=== PATIENT | male | born 1975 | race Caucasian/White ===

== ENCOUNTER 2018-11-20 12:05 | Emergency (ER) | payer SELFPAY ==
[~2018-11-20] VITALS: Ht 185.4 cm; Wt 85.2 kg
[~2018-11-20 12:05] MED LIST: ASPI-515 PO; LISI-170 PO; NITR0.4T28 SL
[2018-11-20 12:13] VITALS: BP 122/60
--- NOTE | 2018-11-20 12:46 | NUR ---
PT HERE FOR SUICIDAL THOUGHTS. PAST ATTEMPTS OF OVERDOSE. TODAY STATES THAT HE WANTS TO CUT HIS WRISTS AND OVERDOSE. HE WALKED INTO HOSPITAL. REPORTS LONG HX OF DEPRESSION. ROOM SECURED. SITTER OUTSIDE ROOM. BELONGINGS IN LOCKER BY [facility]. PT REQUESTING MEAL TRAY AND MILK.
[2018-11-20 12:50] LABS: BASOPHILS # (AUTO) 0.02 x10^3/uL (0-0.1); BASOPHILS % (AUTO) 0 % (0-1); EOSINOPHILS # (AUTO) 0.11 x10^3/uL (0-0.4); EOSINOPHILS % (AUTO) 1 % (1-7); LYMPHOCYTES # (AUTO) 1.07 x10^3/uL (1-3.4); LYMPHOCYTES % (AUTO) 14 % (22-44); MD NO; MEAN CORPUSCULAR HEMOGLOBIN 23.9 pg (27.5-34.5); MEAN CORPUSCULAR HGB CONC 32.2 g/dL (33.2-36.2); MEAN CORPUSCULAR VOLUME 74.2 fL (81-97); MEAN PLATELET VOLUME 7.7 fL (7.4-10.4); MONOCYTES # (AUTO) 0.44 x10^3/uL (0.2-0.8); MONOCYTES % (AUTO) 6 % (2-9); NEUTROPHILS # (AUTO) 6.23 x10^3/uL (1.8-6.8); NEUTROPHILS % (AUTO) 79 % (42-75); PLATELET COUNT 345 x10^3/uL (130-400); RED BLOOD COUNT 4.78 x10^6/uL (4.38-5.82); RED CELL DISTRIBUTION WIDTH 19.6 % (9.4-14.8)
[2018-11-20 12:59] LABS: CHLORIDE 112 mmol/L (98-107)
[2018-11-20 13:03] LABS: ANION GAP 6 mmol/L (5-15); CALCIUM 8.3 mg/dL (8.5-10.1); CREATININE 0.81 mg/dL (0.7-1.3); SALICYLATE LEVEL 3.3 mg/dL (2.8-20.0)
[2018-11-20 13:06] LABS: ACETAMINOPHEN < 2 mcg/mL (10-30)
--- NOTE | 2018-11-20 13:08 | NUR ---
BREAK RN: URINE SENT TO LAB, PT IN BED IN SUICIDE SECURED ROOM, BELONGINGS SECURED, NAD, NO NEEDS AT THIS TIME SITTER AT DOORWAY. [place].
[2018-11-20 13:31] LABS: AMPHETAMINE SCREEN, URINE Negative (Negative); BARBITURATE SCREEN, URINE Negative (Negative); BENZODIAZEPINE SCREEN, URINE Negative (Negative); CANNABINOID SCREEN, URINE Positive (Negative); COCAINE SCREEN, URINE Negative (Negative); METHADONE SCREEN, URINE Negative (Negative); OPIATE SCREEN, URINE Positive (Negative)
--- NOTE | 2018-11-20 14:05 | NUR ---
PT RESTING IN BED WITH SITTER AT DOORWAY, MEAL TRAY GIVEN
--- NOTE | 2018-11-20 15:08 | NUR ---
PT RESTING IN HOSPITAL BED, C/O TV NOT WORKING, ENGINEERING CALLED TO FIX TV
--- NOTE | 2018-11-20 16:02 | NUR ---
PT MOVED TO PSYCH ROOM WITH WORKING TV, GIVEN TWO MORE MILKS. PT RESTING IN [facility] WITH SITTER AT DOORWAY, TELEPSYCH ROBOT SET UP
[2018-11-20 17:00] LABS: ABSOLUTE RETICS # 0.074 x10^6/uL (0.5-1.5); RED BLOOD COUNT 4.72 x10^6/uL (4.38-5.82); RETICULOCYTE COUNT % 1.56 % (0.5-1.5)
== END 2018-11-20 17:25 | disposition home or self-care (01) ==
LOC: ED 14:08 → EDIP 16:21 → UNDOADMIN 16:21 → ED 17:25
DX: F32.9 Major depressive disorder, single episode, unspecified (principal); R45.851 Suicidal ideations; I25.2 Old myocardial infarction; I25.10 Atherosclerotic heart disease of native coronary artery without angina pectoris; I10 Essential (primary) hypertension
CPT/HCPCS: 36415; 80048; 80307; 80329; 82040; 82728; 83540; 83550; 85025; 85045; 99284; G0480

== ENCOUNTER 2020-02-11 02:20 | Emergency (ER) | payer MEDICAID ==
[~2020-02-11] VITALS: Ht 185.4 cm; Wt 85.7 kg
[2020-02-11 02:22] VITALS: BP 118/68
--- NOTE | 2020-02-11 02:40 | NUR ---
Patient presents to ER c/o SI. Patient states he wants to be with his mom who is by taking too many sleeping pills. Patient states he is from [place] and is trying to get back there. Patient states he has an extensive psych hx and has been off of meds for 6-7 months. Patient was seen at [facility] yesterday for medical reasons but did not bring up any SI. Patient is in NAD. Respirations even and unlabored.
== END 2020-02-11 03:25 ==
LOC: ED 03:19
DX: F25.9 Schizoaffective disorder, unspecified (principal); F31.9 Bipolar disorder, unspecified; F17.210 Nicotine dependence, cigarettes, uncomplicated; Z72.9 Problem related to lifestyle, unspecified; I10 Essential (primary) hypertension; I25.2 Old myocardial infarction; I25.10 Atherosclerotic heart disease of native coronary artery without angina pectoris
CPT/HCPCS: 99284; 99406